=== PATIENT | male | born 1945 | race Caucasian/White ===

== ENCOUNTER 2025-02-09 13:24 | Outpatient (CLI) | payer MEDICARE, BC | END 2025-02-09 13:25 | disposition home or self-care (01) | LOC: CSHULT 13:24 | PROVIDERS: ATTEND Urology | DX: N20.0 Calculus of kidney (principal) | CPT/HCPCS: 76770 ==

== ENCOUNTER 2025-03-18 07:43 | Outpatient (CLI) | payer MEDICARE, BC ==
[2025-03-18 09:02] LABS: Estimated GFR - POC 56.0
[2025-03-18] MEDS ORDERED: Iopamidol 370 76% 100 ML VIAL ONE (09:45)
== END 2025-03-18 07:44 | disposition home or self-care (01) ==
LOC: CSHCT 07:43
PROVIDERS: ATTEND Urology
DX: R31.29 Other microscopic hematuria (principal); I72.3 Aneurysm of iliac artery
CPT/HCPCS: 36415; 74178; 82565